=== PATIENT | male | born 1990 | race Caucasian/White ===

== ENCOUNTER 2022-01-06 20:44 | Inpatient (IN) | payer MEDICAID ==
[~2022-01-06] VITALS: Ht 165.1 cm; Wt 61.2 kg
[2022-01-06 20:55] VITALS: BP_SYST 141
[2022-01-06] MEDS ORDERED: NACL 0.9% 1,000 ML IV ONE ×2 (21:00→22:45)
--- NOTE | 2022-01-06 21:15 | NUR ---
PLACED IN [facility] BLOOS DRAWN BY PLEBOTOMIST WENT TO CT FOR ABDOMEN SCAN STAT.
[2022-01-06 21:23] LABS: BASOPHILS # (AUTO) 0.1 K/uL (0.0-0.2); BASOPHILS % (AUTO) 0.6 % (0.0-2.0); EOSINOPHILS # (AUTO) 0.2 K/uL (0.0-0.4); EOSINOPHILS % (AUTO) 2.3 % (0.0-4.0); HEMOGLOBIN 12.6 g/dL (14.0-18.0); LYMPHOCYTES # (AUTO) 2.3 K/uL (1.0-5.5); LYMPHOCYTES % (AUTO) 23.6 % (20.5-51.5); MEAN CORPUSCULAR HEMOGLOBIN 29 pg (27-31); MEAN CORPUSCULAR HGB CONC 34 % (32-36); MEAN CORPUSCULAR VOLUME 84 fL (79.0-98.0); MONOCYTES # (AUTO) 0.9 K/uL (0.0-1.0); MONOCYTES % (AUTO) 8.9 % (1.7-9.3); NEUTROPHILS # (AUTO) 6.2 K/uL (1.8-7.7); NEUTROPHILS % (AUTO) 64.6 % (40.0-70.0); PLATELET COUNT (AUTO) 489 K/uL (130-430); RED CELL DISTRIBUTION WIDTH 13.8 % (9.0-15.0); WHITE BLOOD COUNT (AUTO) 9.6 K/uL (4.8-10.8)
[2022-01-06 21:29] LABS: CALCIUM 9.9 mg/dL (8.4-11.0); CREATININE 1.89 mg/dL (0.55-1.30); POTASSIUM 3.1 mmol/L (3.5-5.1)
[2022-01-06 21:34] LABS: ALBUMIN 4.1 g/dL (3.4-4.8); TOTAL BILIRUBIN 0.3 mg/dL (0.0-1.0)
[2022-01-06] MEDS ORDERED: ONDANSETRON HCL 4 MG/2 ML VIAL ONE (21:59)
[2022-01-06] MEDS ORDERED: FAMOTIDINE PF 20 MG/2 ML VIAL ONE (21:59)
[2022-01-06] MEDS ORDERED: ONDANSETRON HCL 4 MG/2 ML VIAL IVP ONE (22:00)
[2022-01-06] MEDS ORDERED: FAMOTIDINE PF 20 MG/2 ML VIAL IVP ONE (22:00)
--- NOTE | 2022-01-06 22:00 | NUR ---
SPOKE TO DR PAGE WITH ADMIT ORDERS FOR ACUTE RENAL FAILURE
--- NOTE | 2022-01-06 22:05 | NUR ---
MEDICATED WITH ZOFRAN 4 MG IVP AND PEPCID 40 MG IVP ORDERED.
[2022-01-06] MEDS ORDERED: POTASSIUM CHLORIDE 20 MEQ TAB.PRT.SR PO ONE (22:45)
--- NOTE | 2022-01-06 23:37 | NUR ---
COVID JOSLYN done at bedside and sent to lab
--- NOTE | 2022-01-07 00:04 | NUR ---
CONNECTED TO BEDSIDE MONITOR BP HIGH 150/100, IV START AT RT FA G22 PLACED.AND N/S 1L BOLUS RUNNING.
[2022-01-07] MEDS ORDERED: POTASSIUM CHLORIDE 20 MEQ TAB.PRT.SR ONE (00:48)
--- NOTE | 2022-01-07 02:00 | NUR ---
BROUGHT TO [facility] IN ROOM 14-B VIA WHEELCHAIR IN STABLE CONDITION.
[2022-01-07 02:29] LABS: BILIRUBIN,URINE NEGATIVE (NEGATIVE); BLOOD, URINE NEGATIVE (NEGATIVE); CLARITY/URINE CLEAR (CLEAR); COLOR,URINE YELLOW (YELLOW); GLUCOSE,URINE NEGATIVE (NEGATIVE); KETONES,URINE NEGATIVE (NEGATIVE); LEUKOCYTE ESTERASE ,URINE NEGATIVE (NEGATIVE); NITRITE, URINE NEGATIVE (NEGATIVE); PROTEIN URINE NEGATIVE (NEGATIVE); UROBILINOGEN,URINE 0.2 (0.2-1.0)
--- NOTE | 2022-01-07 02:39 | NUR ---
CONSULTATION PAGED/CALLED Reason for Consultation: ACUTE RENAL FAILURE Person Who was Notified: DONNELL Consulting Physician: DR. LESLIE Printing Engineer Specialty: Ordering Physician: DR. PAGE
[2022-01-07 02:45] LABS: CANNABINOID, URINE POSITIVE (NEG <=50); OPIATE, URINE POSITIVE (NEG <=100)
[2022-01-07 02:46] LABS: COCAINE, URINE NEGATIVE (NEG <=150); PHENCYCLIDINE SCREEN,URINE NEGATIVE (NEG <=25); URINE AMPHETAMINE NEGATIVE (NEG <=500)
[2022-01-07 02:47] LABS: BARBITURATE, URINE NEGATIVE (NEG <=200); UR TRICYCLIC ANTIDEPRESSANTS NEGATIVE (NEG <=300); URINE METHADONE NEGATIVE (NEG <=200); URINE OXYCODONE SCREEN NEGATIVE (NEG <=100); URINE PROPOXYPHENE SCREEN NEGATIVE (NEG <=300)
[2022-01-07 02:48] LABS: BENZODIAZEPINE, URINE NEGATIVE (NEG <=150); METHAMPHETAMINES SCREEN,URINE POSITIVE (NEG <=500)
[2022-01-07 03:16] VITALS: BP_SYST 141
[2022-01-07 07:11] LABS: BASOPHILS % (AUTO) 0.6 % (0.0-2.0); EOSINOPHILS # (AUTO) 0.2 K/uL (0.0-0.4); EOSINOPHILS % (AUTO) 2.6 % (0.0-4.0); HEMATOCRIT 31.3 % (36-54); HEMOGLOBIN 10.4 g/dL (14.0-18.0); LYMPHOCYTES # (AUTO) 2.5 K/uL (1.0-5.5); LYMPHOCYTES % (AUTO) 32.3 % (20.5-51.5); MEAN CORPUSCULAR HEMOGLOBIN 28 pg (27-31); MEAN CORPUSCULAR HGB CONC 33 % (32-36); MEAN CORPUSCULAR VOLUME 84 fL (79.0-98.0); MONOCYTES # (AUTO) 0.8 K/uL (0.0-1.0); MONOCYTES % (AUTO) 9.8 % (1.7-9.3); NEUTROPHILS # (AUTO) 4.3 K/uL (1.8-7.7); NEUTROPHILS % (AUTO) 54.7 % (40.0-70.0); PLATELET COUNT (AUTO) 402 K/uL (130-430); RED BLOOD CELL COUNT(AUTO) 3.71 MIL/uL (4.2-6.2); RED CELL DISTRIBUTION WIDTH 13.6 % (9.0-15.0); WHITE BLOOD COUNT (AUTO) 7.8 K/uL (4.8-10.8)
--- NOTE | 2022-01-07 07:22 | NUR ---
CLOSING NOTES Patient resting in bed - no s/s pain or distress noted. Respirations even and unlabored - head of bed elevated. IV site patent - no s/s redness, infection, or infiltration. Bed locked and in lowest position. Call light within reach.
[2022-01-07 07:36] LABS: ALBUMIN 3.1 g/dL (3.4-4.8); CALCIUM 8.3 mg/dL (8.4-11.0); CREATININE 1.53 mg/dL (0.55-1.30); POTASSIUM 3.7 mmol/L (3.5-5.1); TOTAL BILIRUBIN 0.2 mg/dL (0.0-1.0)
--- NOTE | 2022-01-07 08:10 | NUR ---
OPENING' IN BED, ALERT AND ORIENTED. DENIES PAIN AT THIS TIME. PLAN OF CARE DISCUSSED WITH PT. INSTRUCTED USE OF PHONE AND CALL LIGHT. PT VERBALIZED UNDERSTANDING
[2022-01-07 08:15] VITALS: BP_SYST 126
[2022-01-07 11:34] VITALS: BP_SYST 124
--- NOTE | 2022-01-07 11:48 | NUR ---
CONSULT GI ABDOMINAL PAIN DR KILLIAN [phone] ANSWERING SERVICE NOT AVAILABLE ONLY OPTION WAS TO PRESS "0: AND LEAVE MESSAGE LEFT VM MESSAGE WITH OFFICE Addendum: 01/07/22 at 1330 by Carol Haddad [place]/ CALLED EXCHANGE @ [phone] RE: CONSULT S/W YANDEL
--- NOTE | 2022-01-07 11:52 | NUR ---
CONSULT PSYCH METH ABUSE MAURICIO BENJAMIN [phone] LEFT VM ON BOTH NUMBERS
--- NOTE | 2022-01-07 13:10 | NUR ---
ROUNDS DENIES PAIN AT THIS TIME. WILL CONTINUE TO MONITOR
--- NOTE | 2022-01-07 13:31 | NUR ---
CONSULT GI ABDOMINAL PAIN DR KILLIAN [phone] S/W ANNE MARIE FULLER
[2022-01-07 16:00] VITALS: BP_SYST 120
[2022-01-07 20:14] VITALS: BP_SYST 142
[2022-01-07] MEDS ORDERED: ONDANSETRON HCL 4 MG/2 ML VIAL IVP PRN (23:30)
[2022-01-07] MEDS ORDERED: ACETAMINOPHEN 325 MG TABLET PO PRN (23:30)
[2022-01-08] VITALS (7 sets, daily range): BP systolic 123–157
[2022-01-08] MEDS: SIMETHICONE 80 MG TAB.CHEW PO PRN ×2 (00:02→10:09)
--- NOTE | 2022-01-08 00:10 | NUR ---
PT CO ABDOMINAL PAIN. OFFERED PT TYLENOL BUT PT REFUSED. PT STATED DR KILLIAN TOLD HIM HE WAS HAVING AN EGD IN THE AM. THERE ISN'T A NOTES OR A ORDER FOR AN EGD IN HIS CHART. ADVISED PT NOT TO EAT OR DRINK ANYTHING UNTIL THE AM JUST INCASE THERE IS A PLAN FOR AN EGD. PT AGREED AND VERBALIZED UNDERSTANDING.
--- NOTE | 2022-01-08 07:17 | NUR ---
PT HAS BEEN NPO FOR POSSIBLE EGD. PT STATED HE WAS TOLD HE WAS GETTING AN EGD. ENDORSED TO AM NURSE
[2022-01-08 07:53] LABS: BASOPHILS # (AUTO) 0.1 K/uL (0.0-0.2); BASOPHILS % (AUTO) 0.9 % (0.0-2.0); EOSINOPHILS # (AUTO) 0.3 K/uL (0.0-0.4); EOSINOPHILS % (AUTO) 4.8 % (0.0-4.0); HEMATOCRIT 32.9 % (36-54); LYMPHOCYTES # (AUTO) 2.1 K/uL (1.0-5.5); LYMPHOCYTES % (AUTO) 29.8 % (20.5-51.5); MEAN CORPUSCULAR HEMOGLOBIN 28 pg (27-31); MEAN CORPUSCULAR HGB CONC 33 % (32-36); MEAN CORPUSCULAR VOLUME 85 fL (79.0-98.0); MONOCYTES # (AUTO) 0.6 K/uL (0.0-1.0); MONOCYTES % (AUTO) 8.6 % (1.7-9.3); NEUTROPHILS # (AUTO) 3.9 K/uL (1.8-7.7); NEUTROPHILS % (AUTO) 55.9 % (40.0-70.0); PLATELET COUNT (AUTO) 420 K/uL (130-430); RED BLOOD CELL COUNT(AUTO) 3.87 MIL/uL (4.2-6.2); RED CELL DISTRIBUTION WIDTH 13.9 % (9.0-15.0)
[2022-01-08 08:09] LABS: CALCIUM 8.5 mg/dL (8.4-11.0); CREATININE 1.49 mg/dL (0.55-1.30); PHOSPHORUS 3.6 mg/dL (2.7-4.5); POTASSIUM 3.5 mmol/L (3.5-5.1)
[2022-01-08] MEDS ORDERED: DIPHENHYDRAMINE INJ 50 MG/ML VIAL ONE (11:06)
[2022-01-08] MEDS: MEPERIDINE 100 MG INJ. 100 MG/ML VIAL ONE ×3 (11:22→11:31)
[2022-01-08] MEDS: MIDAZOLAM HCL 5 MG/5 ML VIAL ONE ×4 (11:22→11:31)
[2022-01-08] MEDS ORDERED: MIDAZOLAM HCL 5 MG/5 ML VIAL ONE (11:36)
[2022-01-08] MEDS ORDERED: PANTOPRAZOLE SODIUM 40 MG/VIAL (PROTONIX) IVP ONE (12:30)
[2022-01-08] MEDS: PANTOPRAZOLE SODIUM 40 MG/VIAL (PROTONIX) IVP SCH (17:08)
[2022-01-08] MEDS: NACL 0.9% 1,000 ML IV SCH (20:15)
[2022-01-09 04:29] VITALS: BP_SYST 132
[2022-01-09] MEDS: PANTOPRAZOLE SODIUM 40 MG/VIAL (PROTONIX) IVP SCH ×2 (06:20→17:12)
[2022-01-09 07:38] LABS: CALCIUM 8.4 mg/dL (8.4-11.0); CREATININE 1.54 mg/dL (0.55-1.30); POTASSIUM 4.2 mmol/L (3.5-5.1)
[2022-01-09 07:55] VITALS: BP_SYST 115
--- NOTE | 2022-01-09 08:00 | NUR ---
Initial Notes Patient is alert, awake, and oriented. Vital signs obtained. Denies any pain or discomfort. Patient is ambulatory and aware to call for assistance. Safety precautions in place and call light within reach.
[2022-01-09] MEDS: NACL 0.9% 1,000 ML IV SCH (10:23)
[2022-01-09 11:01] LABS: URINE SODIUM, RANDOM 177 mmol/L (40-220)
[2022-01-09 12:00] VITALS: BP_SYST 127
--- NOTE | 2022-01-09 12:00 | NUR ---
Notes Patient is resting. No signs of pain or distress noted. Safety precautions in place and call light within reach.
--- NOTE | 2022-01-09 14:07 | NUR ---
Dietitian Recommendations Advance to regular diet when medically apppropriate. Ensure Enlive BID. Double portions. Consider stool softener. Please refer to nutrition assessment for details. Signed: 01/09/22 at 1408 by Susie SOL <Co-Signature Required> Co-Signed: 01/09/22 at [address] Addendum: 01/09/22 at 1408 by Susie SOL Amended: Links added.
--- NOTE | 2022-01-09 14:10 | NUR ---
Notes Patient's diet was changed to soft, low fiber/ bland diet. Patient tolerated lunch well. No nausea or vomiting. Patient denies any abdominal pain. Will continue to monitor.
[2022-01-09] MEDS ORDERED: PANT20TA2 PO (15:07)
--- NOTE | 2022-01-09 15:55 | NUR ---
SPOKE TO MANA HENRY TO DISCHARGE PT HOME.
[2022-01-09 16:00] VITALS: BP_SYST 120
--- NOTE | 2022-01-09 16:23 | NUR ---
PAGED PAGED GI DOCTOR STEPHANIA COHN AT [phone] SPOKE WITH HERRERA.
--- NOTE | 2022-01-09 16:30 | NUR ---
NOTES PATIENT IN BED RESTING. VITALS OBTAINED. DENIES ANY ABDOMINAL PAIN OR DISCOMFORT. SAFETY PRECAUTIONS IN PLACE AND CALL LIGHT WITHIN REACH.
--- NOTE | 2022-01-09 17:00 | NUR ---
NOTES PATIENT REALLY WANTS TO GO HOME. DENIES ANY ABDOMINAL PAIN. NO NAUSEA OR VOMITING. INFORMED PATIENT TAHT WE ARE STILL WAITING FOR GI DOCTOR TO CALL BACK.
--- NOTE | 2022-01-09 17:22 | NUR ---
SPOKE TO DR. GARCIA, WHO IS COVERING FOR DR. LILLY. PER MD, PATIENT CAN GO HOME IF ATTENDING MD WANTS TO DISCHARGE.
[2022-01-09 17:38] VITALS: BP_SYST 120
--- NOTE | 2022-01-09 18:37 | NUR ---
DISCHARGE HOME PATIENT DISCHARGED HOME. AWAKE, ORIENTED, AMBULATORY. DENIES ANY ABDOMINAL PAIN. NO NAUSEA OR VOMITING. TOLERATED DINNER WELL. TOOK OUT IV AND ID WRIST BAND. DISCUSSED WITH PATIENT, DISCHARGE INSTRUCTIONS, MEDICATIONS, AND FOLLOW UP CARE. PATIENT VERBALIZED UNDERSTANDING.
== END 2022-01-09 18:45 | disposition home or self-care (01) | DRG 243 ==
LOC: SED 20:44 → STU 22:33
PROVIDERS: ADMIT Internal Medicine; ATTEND Internal Medicine
PROC: 0DB78ZX Excision of Stomach, Pylorus, Via Natural or Artificial Opening Endoscopic, Diagnostic (ICD-10-PCS; 2022-01-08)
PROC: 0DB68ZX Excision of Stomach, Via Natural or Artificial Opening Endoscopic, Diagnostic (ICD-10-PCS; 2022-01-08)
PROC: 0DB98ZX Excision of Duodenum, Via Natural or Artificial Opening Endoscopic, Diagnostic (ICD-10-PCS; principal; 2022-01-08 11:00)
DX: K22.10 Ulcer of esophagus without bleeding (principal); N17.0 Acute kidney failure with tubular necrosis; K31.1 Adult hypertrophic pyloric stenosis; K26.9 Duodenal ulcer, unspecified as acute or chronic, without hemorrhage or perforation; D64.9 Anemia, unspecified; E86.0 Dehydration; F12.10 Cannabis abuse, uncomplicated; F15.23 Other stimulant dependence with withdrawal; K59.00 Constipation, unspecified; E87.6 Hypokalemia; J45.909 Unspecified asthma, uncomplicated; B96.81 Helicobacter pylori [H. pylori] as the cause of diseases classified elsewhere; Z20.822 Contact with and (suspected) exposure to COVID-19; K29.70 Gastritis, unspecified, without bleeding; K25.9 Gastric ulcer, unspecified as acute or chronic, without hemorrhage or perforation; F11.10 Opioid abuse, uncomplicated; I25.2 Old myocardial infarction; Z86.73 Personal history of transient ischemic attack (TIA), and cerebral infarction without residual deficits; Z83.3 Family history of diabetes mellitus; Z81.3 Family history of other psychoactive substance abuse and dependence
CPT/HCPCS: 36415; 43239; 76376; 80048; 80053; 80307; 81003; 82043; 82570; 82941; 83735; 83874; 84100; 84302; 85025; 87081; 88305; 88312; 88313; 96361; 96374; 96375; 99285; C9113; G0378; J1200; J2175; J2250; J2405; J3490

== ENCOUNTER 2022-01-15 16:59 | Emergency (ER) | payer MEDICAID ==
[~2022-01-15] VITALS: Ht 162.6 cm; Wt 64.4 kg
[~2022-01-15 16:59] MED LIST: PANT20TA2 PO
[2022-01-15 17:42] VITALS: BP_SYST 147
--- NOTE | 2022-01-15 17:42 | NUR ---
Pt triaged in waiting area
--- NOTE | 2022-01-15 17:45 | NUR ---
Patient to ER bed 7 for evaluation. Side rails up. Report given to Leah ENGLE.
--- NOTE | 2022-01-15 18:00 | NUR ---
# 20 gauge angiocath placed to LAC. Use of asceptic technique. Opsite placed over site. Blood return noted. Blood for lab drawn from site. Flushed with 10 cc of normal saline. No evidence of infiltration noted. Patient tolerated well.
--- NOTE | 2022-01-15 18:05 | NUR ---
PT CAME INTO ER C/O INTERMITTANT ABD PAIN AND HIP PAIN STARTING TODAY. DENIES N/V. STATES HE WAS JUST HERE FOR ULCERS IN HIS STOMACH AND KIDNEY FAILURE. PT IS AMBULATORY, AAOX4, VSS
[2022-01-15 18:21] LABS: BASOPHILS % (AUTO) 0.4 % (0.0-2.0); EOSINOPHILS # (AUTO) 0.4 K/uL (0.0-0.4); EOSINOPHILS % (AUTO) 3.9 % (0.0-4.0); HEMATOCRIT 33.6 % (36-54); HEMOGLOBIN 11.2 g/dL (14.0-18.0); LYMPHOCYTES # (AUTO) 0.4 K/uL (1.0-5.5); MEAN CORPUSCULAR HEMOGLOBIN 29 pg (27-31); MEAN CORPUSCULAR HGB CONC 33 % (32-36); MEAN CORPUSCULAR VOLUME 86 fL (79.0-98.0); MONOCYTES % (AUTO) 10.5 % (1.7-9.3); NEUTROPHILS # (AUTO) 7.7 K/uL (1.8-7.7); NEUTROPHILS % (AUTO) 81.2 % (40.0-70.0); PLATELET COUNT (AUTO) 382 K/uL (130-430); RED BLOOD CELL COUNT(AUTO) 3.93 MIL/uL (4.2-6.2); RED CELL DISTRIBUTION WIDTH 14.6 % (9.0-15.0); WHITE BLOOD COUNT (AUTO) 9.5 K/uL (4.8-10.8)
[2022-01-15 19:17] LABS: CREATININE 1.55 mg/dL (0.55-1.30); POTASSIUM 3.6 mmol/L (3.5-5.1)
--- NOTE | 2022-01-15 19:20 | NUR ---
REPORT GIVEN TO ONIEL PENDLETON FOR CONTINUING CARE
[2022-01-15 19:22] LABS: ALBUMIN 3.8 g/dL (3.4-4.8); TOTAL BILIRUBIN 0.1 mg/dL (0.0-1.0)
--- NOTE | 2022-01-15 19:33 | NUR ---
Dr. Burk at bedside.
[2022-01-15] MEDS ORDERED: PANTOPRAZOLE SODIUM 40 MG/VIAL (PROTONIX) IVP ONE (19:45)
[2022-01-15] MEDS ORDERED: MORPHINE 4 MG INJ. 4 MG/ML VIAL IVP ONE (19:45)
[2022-01-15] MEDS ORDERED: NACL 0.9% 1,000 ML IV ONE (19:45)
[2022-01-15] MEDS ORDERED: ONDANSETRON HCL 4 MG/2 ML VIAL ONE (19:59)
[2022-01-15] MEDS ORDERED: ONDANSETRON HCL 4 MG/2 ML VIAL IVP ONE (20:00)
--- NOTE | 2022-01-15 20:09 | NUR ---
Zofran 4 mg given IVP per verbal order Dr. Burk.
--- NOTE | 2022-01-15 20:20 | NUR ---
Specimens for Rapid COVID and Influenza tests collected and sent to lab.
--- NOTE | 2022-01-15 20:32 | NUR ---
PT WITH EYES CLOSED, IN NAD. RESP EVEN AND UNLABORED. WAIITNG FOR TEST RESULTS. SAFTEY PRECAUTIONS IN PLACE.
--- NOTE | 2022-01-15 21:03 | NUR ---
GIRLFRIEND CALLED AND UPDATED ON PT'S STATUS WITH PERMISSION OF PT. VSS.
--- NOTE | 2022-01-15 21:05 | NUR ---
COVID POSITIVE, DR MCGRATH INFORMED.
[2022-01-15] MEDS ORDERED: METR-154 PO (22:46)
[2022-01-15] MEDS ORDERED: [UNRECOGNIZED DRUG - CODE] PO (22:46)
[2022-01-15] MEDS ORDERED: TETR-65 PO (22:46)
--- NOTE | 2022-01-15 23:00 | NUR ---
Patient given written and verbal discharge instructions and verbalizes understanding. ER MD discussed with patient the results and treatment provided. Patient in stable condition. ID arm band removed. IV catheter removed intact and dressing applied, no active bleeding. Rx of TETRACYCLINE, DIOTAME, FLAGYL given. Patient educated on pain management and to follow up with PMD. Pain Scale . Opportunity for questions provided and answered. Medication side effect fact sheet provided.
[2022-01-15 23:01] VITALS: BP_SYST 138
== END 2022-01-15 23:01 | disposition home or self-care (01) ==
LOC: SED 16:59
DX: A04.8 Other specified bacterial intestinal infections (principal); R10.9 Unspecified abdominal pain; U07.1 COVID-19
CPT/HCPCS: 36415; 80053; 83690; 85025; 87426; 87804 ×2; 96374; 96375; 99284; C9113; J2270; J2405